=== PATIENT | male | born 1945 | race Two or more races ===

== ENCOUNTER 2020-03-09 15:38 | Emergency (ER) | payer MEDICARE, OTHER ==
[~2020-03-09] VITALS: Ht 172.7 cm; Wt 127.0 kg
[~2020-03-09 15:38] MED LIST: CEPHALEXIN500 MG ORAL; CYCLOBENZAPRINE10 MG ORAL; GLIMEPIRIDE1 MG ORAL; IBUPROFEN600 MG ORAL; JANUVIA100 MG ORAL; KEFLEX500 MG ORAL; NAPROXEN500 M1 ORAL; NAPROXEN500 M2 ORAL; NORCO 10/3251 EA ORAL; NORCO 5-325 TA1 EACH ORAL; TENORMIN25 MG ORAL; UNOBMED; VESICARE5 MG ORAL
[2020-03-09] MEDS ORDERED: Ketorolac 30mg Inj IM ONE (16:00)
--- NOTE | 2020-03-09 16:05 | Emergency Room Report ---
History of Present Illness General Chief Complaint: Pain Source: Patient Present Illness HPI Patient is a 74-year-old male past medical history of obesity, CVA with residual right-sided deficits currently wheelchair-bound and diabetes who presents to the ER complaining of left forearm pain. Patient states that the pain began 3 days ago. He denies any trauma. He denies any focal weakness. He denies any fever or chills. He states that he is still able to use his arm just that the forearm is painful. No history of similar symptoms in the past. Allergies: Coded Allergies: AMOXICILLIN (Verified Allergy, Unknown, 12/05/11) PENICILLINS (Verified Allergy, Unknown, 03/09/20) COVID-19 Screening Contact w/high risk pt: No Recent Travel to affected area: No Experienced COVID-19 symptoms?: No Patient History Reviewed Nursing Documentation: PMH: Agreed; PSxH: Agreed Nursing Documentation-[facility] Past Medical History: No History, Except For Hx Cardiac Problems: Yes Hx Hypertension: Yes Hx Diabetes: Yes Hx Cancer: Yes - cancerous moles removed from face and arm. Hx Cerebrovascular Accident: Yes - 2005 Review of Systems All Other Systems: negative except mentioned in HPI Physical Exam Vital Signs Date Time Temp Pulse Resp B/P (MAP) Pulse Ox O2 Delivery O2 Flow Rate FiO2 03/09/20 15:50 98.8 77 20 118/57 (77) 95 Room Air Sp02 EP Interpretation: reviewed, normal General Appearance: no apparent distress, alert, GCS 15, non-toxic, other - obese male, in electric wheelchair Head: normocephalic, atraumatic Eyes: bilateral eye normal inspection, bilateral eye PERRL ENT: hearing grossly normal, normal pharynx, no angioedema, normal voice Neck: full range of motion, supple/symm/no masses Respiratory: chest non-tender, lungs clear, normal breath sounds, speaking full sentences Cardiovascular #1: regular rate, rhythm, no edema Gastrointestinal: normal bowel sounds, non tender, soft, non-distended, no guarding, no rebound Rectal: deferred Musculoskeletal: other - L mid forearm ttp, no deformity, normal rom, no erythema, 2+ radial pulses, cap refill immediate Neurologic: oriented x3 Psychiatric: normal inspection Skin: no rash Lymphatic: no adenopathy Medical Decision Making Diagnostic Impression: Primary Impression: Strain of forearm, left ER Course Patient's x-ray demonstrates no acute fractures. Patient's ultrasound demonstrates no evidence for DVT. Possible extremity sprain. No evidence for cellulitis specifically no erythema, swelling or crepitus. Patient given Toradol with improvement of symptoms. Patient given prescription for naproxen. After discussing risks and benefits of further diagnostics, treatment plans, as well as indications for and risks of admission, the patient is agreeable to being discharged home. I have explained that their evaluation and treatment in the emergency department today is an important step towards them achieving better health but that their evaluation today is not intended to replace further evaluation and treatment by a physician in their local clinic. I have explained that while the current findings suggest no immediate life threatening emergency they will require further evaluation and treatment by a physician of their choice in their area. They understand that it will be necessary for them to review the final reports of their ED visit with their clinic physician. We have reviewed indications for return to the Emergency Department. I have explained that additional time may need to pass and/or additional testing as an outpatient may be necessary before a definitive diagnosis can be made. They tell me they are willing to follow up as instructed within the timeframe I recommend. They appear to understand what we discussed. Additionally they understand that if they are unable to be seen by an outpatient physician they are welcome, and in fact should, return to the Emergency Department for a repeat evaluation. The patient is stable at time of discharge. Last Vital Signs Date Time Temp Pulse Resp B/P (MAP) Pulse Ox O2 Delivery O2 Flow Rate FiO2 03/09/20 15:50 98.8 77 20 118/57 (77) 95 Room Air Disposition: HOME, SELF-CARE Condition: Stable - improved Scripts Naproxen (Naproxen) 250 Mg Tablet 500 MG PO EVERY 8 HOURS, #20 TAB Prov: Gabriella Beltre M.D. 03/09/20 Additional Instructions: The patient was provided with discharge instructions, notified to follow-up with a primary care doctor and or specialist in the next 24-48 hours, and to return to the ED if they have worsening of their symptoms. Please note that this report is being documented using [employer] technology. This can lead to erroneous entry secondary to incorrect interpretation by the dictating instrument. Gabriella Beltre M.D. March 09, 2020 16:05
[2020-03-09 16:10] VITALS: BP 118/57
--- NOTE | 2020-03-09 16:15 | NUR ---
ED Nurse Note: Pt came in due to left arm pain x 3 days. Denies trauma or injury.
--- NOTE | 2020-03-09 16:38 | Diagnostic Imaging Report ---
Indications: Left forearm pain Technique: Two views of the left forearm Comparison: None Findings: No acute fractures. No dislocations. There is a small coronoid process spur. Impression: No acute process
[2020-03-09] MEDS ORDERED: NAPROXEN250 M1 PO (17:10)
[2020-03-09 17:28] VITALS: BP 118/57
--- NOTE | 2020-03-09 17:29 | NUR ---
ED Nurse Note: Pt cleared by health care Provider for discharge. DC instructions/prescription was given and explained to pt and verbalized understanding of teachings. All medical deviecs such as ID band removed. Pt is AAO x4, ambulatory and left with all personal belongings.
--- NOTE | 2020-03-09 17:49 | Diagnostic Imaging Report ---
Indication: Left arm pain Technique: Grayscale and duplex images of the left upper extremity veins Comparison: none Findings: On the left, grayscale and duplex images demonstrate no evidence of intraluminal thrombus. Normal phasic Doppler waveforms, demonstrating normal augmentation response. Normal compressibility. Impression: Negative for evidence of left upper extremity venous thrombosis
== END 2020-03-09 17:30 | disposition home or self-care (01) ==
LOC: EMR 16:05
DX: S56.912A Strain of unspecified muscles, fascia and tendons at forearm level, left arm, initial encounter (principal); X58.XXXA Exposure to other specified factors, initial encounter; Y92.9 Unspecified place or not applicable; Z99.3 Dependence on wheelchair; G81.91 Hemiplegia, unspecified affecting right dominant side; Z88.0 Allergy status to penicillin; E11.9 Type 2 diabetes mellitus without complications; Z85.828 Personal history of other malignant neoplasm of skin
CPT/HCPCS: 73090; 93931; 96372; 99284; J1885

== ENCOUNTER 2020-03-12 15:15 | Emergency (ER) | payer MEDICARE, OTHER ==
[~2020-03-12] VITALS: Ht 172.7 cm; Wt 130.6 kg
[~2020-03-12 15:15] MED LIST changes: +NAPROXEN250 M1 PO
[2020-03-12 15:29] VITALS: BP 111/58
--- NOTE | 2020-03-12 15:29 | NUR ---
ED Nurse Note: Patient wheeled in to ED from home c/o left arm pain x3 days. Patient was seen here last 3 days ago for the same sx. Denies fall/ injury. Not in any distress. VSS.
--- NOTE | 2020-03-12 15:51 | NUR ---
ED Nurse Note: ERPA at bedside.
--- NOTE | 2020-03-12 16:00 | NUR ---
ED Nurse Note: Blood specimen collected and sent to lab.
--- NOTE | 2020-03-12 16:47 | Emergency Room Report ---
History of Present Illness General Chief Complaint: Upper Extremity Injury Present Illness HPI 74 YO male with extensive PmHx significant for Cancer, CVA, HTN, and DM presents to the ED for re-evaluation of 06/13 in severity left forearm and wrist pain x 3 days. Pt. reports He was seen here in ED 3 days ago and was Dx'd with forearm strain after xray imaging and US was performed. Pt. states the Naproxen he was Rx'd does relieve his pain, However pt. c/o severe pain that wakes him up in the middle of the night. Pt. reports now having left wrist and hand swelling. Pt. denies erythema or warmth. Denies paresthesias, trauma or fall. Pt. denies left shoulder,elbow or neck pain. Pt. reports He is supposed to take Allopurinol but has not in almost 4 weeks. Pt. is not sure what that medication is for. Pt. denies CP, palpitations, SALCEDO or SOB. Allergies: Coded Allergies: AMOXICILLIN (Verified Allergy, Unknown, 12/05/11) PENICILLINS (Verified Allergy, Unknown, 03/09/20) COVID-19 Screening Contact w/high risk pt: No Recent Travel to affected area: No Experienced COVID-19 symptoms?: No Patient History Past Medical History: see triage record Past Surgical History: other Pertinent Family History: none Reviewed Nursing Documentation: PMH: Agreed; PSxH: Agreed Nursing Documentation-PMH Hx Cardiac Problems: Yes Hx Hypertension: Yes Hx Diabetes: Yes Hx Cancer: Yes - cancerous moles removed from face and arm. Hx Cerebrovascular Accident: Yes - 2005 Review of Systems All Other Systems: negative except mentioned in HPI Physical Exam Vital Signs Date Time Temp Pulse Resp B/P (MAP) Pulse Ox O2 Delivery O2 Flow Rate FiO2 03/12/20 15:25 99.3 84 20 111/58 (75) 96 Room Air Sp02 EP Interpretation: reviewed, normal General Appearance: no apparent distress, alert, GCS 15, non-toxic Head: normocephalic, atraumatic Eyes: bilateral eye normal inspection, bilateral eye PERRL ENT: hearing grossly normal, normal voice Neck: full range of motion Respiratory: chest non-tender, lungs clear, normal breath sounds, speaking full sentences Cardiovascular #1: regular rate, rhythm, normal capillary refill Musculoskeletal: normal range of motion, tender - TTP to the lightest of gentle touch., swelling - non-erythematous swelling of the left wrist and hand. No warmth, other - Pt. wheelchair bound. Right wrist in splint 2* hx of fx. Neurologic: alert, motor strength/tone normal, distal neuro normal, oriented x3 , sensory intact, responsive, speech normal, grossly normal Psychiatric: judgement/insight normal Skin: normal color Lymphatic: no adenopathy Medical Decision Making PA Attestation Dr. Prasad is my supervising Physician whom patient management has been discussed with. Diagnostic Impression: Primary Impression: Gout attack Qualified Codes: M10.9 - Gout, unspecified ER Course 74 YO male with extensive PmHx significant for Cancer, CVA, HTN, and DM presents to the ED for re-evaluation of 06/13 in severity left forearm and wrist pain x 3 days. Pt. reports He was seen here in ED 3 days ago and was Dx'd with forearm strain after xray imaging and US was performed. Pt. states the Naproxen he was Rx'd does relieve his pain, However pt. c/o severe pain that wakes him up in the middle of the night. Pt. reports now having left wrist and hand swelling. Pt. denies erythema or warmth. Denies paresthesias, trauma or fall. Pt. denies left shoulder,elbow or neck pain. Pt. reports He is supposed to take Allopurinol but has not in almost 4 weeks. Pt. is not sure what that medication is for. Pt. denies CP, palpitations, SALCEDO or SOB. Ddx considered but are not limited to cellulitis, Septic joint, DVT, lymphedema , pseudogout fracture, d/L, gout Vital signs: are WNL, pt. is afebrile H&PE are most consistent with recurrent gout attack. ORDERS: -Uric Acid: ELEVATED 7.8 - BMP: WNL ED INTERVENTIONS: -Colchicine 1.2mg PO pt. given rx for second dose of 0.6mg to be taken 1 hour after. DISCHARGE: At this time pt. is stable for d/c to home. Will provide printed patient care instructions, and any necessary prescriptions. Care plan and follow up instructions have been discussed with the patient prior to discharge. Labs Test 03/12/20 16:12 Sodium Level 140 MMOL/L (136-145) Potassium Level 3.9 MMOL/L (3.5-5.1) Chloride Level 103 MMOL/L (98-107) Carbon Dioxide Level 26 MMOL/L (21-32) Anion Gap 11 mmol/L (5-15) Blood Urea Nitrogen 25 mg/dL (7-18) Creatinine 1.2 MG/DL (0.55-1.30) Estimat Glomerular Filtration Rate 59.2 mL/min (>60) Glucose Level 99 MG/DL (74-106) Uric Acid 7.6 MG/DL (2.6-7.2) Calcium Level 9.1 MG/DL (8.5-10.1) Last Vital Signs Date Time Temp Pulse Resp B/P (MAP) Pulse Ox O2 Delivery O2 Flow Rate FiO2 03/12/20 15:29 99.3 84 20 111/58 96 Room Air Disposition: HOME, SELF-CARE Condition: Stable Scripts Allopurinol* (ALLOPURINOL*) 100 Mg Tablet 100 MG ORAL DAILY, #30 TAB DO NOT START UNTIL YOUR GOUT ATTACK/PAIN HAS COMPLETELY RESOLVED !! Prov: Saar Chao 03/12/20 Colchicine (COLCRYS) 0.6 Mg Tablet 0.6 MG PO ONCE, #1 TAB Prov: Sara Chao 03/12/20 Referrals: [facility] + [facility] Patient Instructions: Gout, [id number] Additional Instructions: Take medications as directed. Follow up with a Primary Care Provider in 3-5 days, even if your symptoms have resolved. --Please review list of primary care clinics, if you do not already have a primary care provider Return sooner to ED if new symptoms occur, or current symptoms become worse. - Please note that this Emergency Department Report was dictated using [employer] technology software, occasionally this can lead to erroneous entry secondary to interpretation by the dictation equipment. Sara Chao March 12, 2020 16:47
[2020-03-12 17:07] LABS: ANION GAP 11 mmol/L (5-15); BLOOD UREA NITROGEN 25 mg/dL (7-18); CALCIUM 9.1 MG/DL (8.5-10.1); CARBON DIOXIDE 26 MMOL/L (21-32); CHLORIDE 103 MMOL/L (98-107); CREATININE 1.2 MG/DL (0.55-1.30); POTASSIUM 3.9 MMOL/L (3.5-5.1); SODIUM 140 MMOL/L (136-145)
[2020-03-12] MEDS ORDERED: COLCRYS0.6 M1 PO (17:14)
[2020-03-12] MEDS ORDERED: ALLOPURINOL100 M1 ORAL (17:14)
[2020-03-12 17:19] VITALS: BP 125/65
--- NOTE | 2020-03-12 17:19 | NUR ---
ED Nurse Note: Pt cleared by ERPA for discharge. DC instructions/prescription was given and explained to pt and verbalized understanding of teachings. All medical deviecs such as ID band removed. Pt is AAO x4, and left with all personal belongings.
== END 2020-03-12 17:19 | disposition home or self-care (01) ==
LOC: EMR 16:26
DX: M10.9 Gout, unspecified (principal); I10 Essential (primary) hypertension; E11.9 Type 2 diabetes mellitus without complications; Z86.73 Personal history of transient ischemic attack (TIA), and cerebral infarction without residual deficits; Z85.828 Personal history of other malignant neoplasm of skin
CPT/HCPCS: 36415; 80048; 82962; 84550; 99283